=== PATIENT | female | born 1985 | race Caucasian/White ===

== ENCOUNTER 2018-09-20 23:05 | Emergency (ER) | payer SELFPAY ==
[2018-09-20 23:07] VITALS: BP 136/88; PULSE 79; RESP 16; TEMP 36.2; O2SAT 100; BMI 36.6
--- NOTE | 2018-09-20 23:28 | ED_ITS ---
HPI - General Adult General Chief complaint: Dental/Oral Stated complaint: thinks abscess lower right side of jaw Time Seen by Provider: 09/20/18 23:28 Source: patient Mode of arrival: ambulatory Limitations: no limitations History of Present Illness HPI narrative: 33-year-old female here for evaluation of what she thinks is a dental abscess in the right lower jaw. States the symptoms have been going on for the past couple days. No fevers. No problems breathing. States she has had a cracked tooth on that side for some time now. Started noticing some pain and swelling in that area recently. No ear pain. Related Data Previous Rx's Medication Instructions Recorded penicillin V potassium 500 mg PO QID 6 Days #24 tab 09/21/18 penicillin V potassium 500 mg PO QID 7 Days #28 tab 09/21/18 Review of Systems Constitutional Denies fever(s) and Denies headache(s) ENT Ears, Nose, Mouth, and Throat: Reports dental pain, Denies dizziness, Denies headache(s), Denies sore throat and Denies throat swelling Comments: Right-sided jaw pain Cardiovascular Denies chest pain and Denies dyspnea Respiratory Denies dyspnea Musculoskeletal Denies myalgias and Denies arthralgias Integumentary/Breasts Denies rash Neurologic Denies dizziness and Denies headache(s) Hematologic/Lymphatic Denies easy bleeding and Denies easy bruising Allergic/Immunologic Denies throat swelling [facility] Medical History Patient denies medical problems (Acute) Social History Smoking Status: Never smoker Social History Smoking Status: Never smoker Exam Initial Vital Signs Initial Vital Signs: Vital Signs Temperature 97.2 F L 09/20/18 23:07 Pulse Rate 79 09/20/18 23:07 Respiratory Rate 16 09/20/18 23:07 Blood Pressure 136/88 09/20/18 23:07 Pulse Oximetry 100 09/20/18 23:07 Const General: cooperative, comfortable, well developed, well groomed and No acute distress Orientation: alert, awake and oriented x3 HENMT Head: normal to inspection and normocephalic Ears: hearing grossly normal bilaterally Nose: external nose normal Face and sinus: normal facial exam Mouth: other (Draining abscess along tooth number 32) Teeth and gingiva: other (Cracked tooth number 32) Throat: posterior oropharynx normal and uvula midline Resp Effort & Inspection: normal respiratory effort Cardio Rate: regular rate Skin Lesions: no lesions Rashes: no rashes Neuro General: alert and awake Extrem General: normal to inspection and capillary refill normal Psych Appearance: grossly normal and well kempt Course Orders Ordered: Discontinued Medications Penicillin V Potassium (Veetids) 500 mg PO NOW ONE Stop: 09/21/18 00:14 Last Admin: 09/21/18 00:37 Dose: Not Given Penicillin V Potassium (Penicillin Vk 250mg Tab Prepack) 1 bottle MISC SEEINSTR ONE Stop: 09/21/18 00:37 Last Admin: 09/21/18 00:37 Dose: 1 bottle Vital Signs - 8 hr 09/20/18 23:07 09/21/18 00:42 Temperature 97.2 F L 98.5 F Pulse Rate 79 88 Respiratory Rate 16 16 Blood Pressure 136/88 133/92 H Pulse Oximetry 100 100 Medical Decision Making MDM Narrative Medical decision making narrative: Patient with a draining abscess in the right lower jaw line. She does have a cracked tooth her bottom left posterior molar. Patient was given prepack for antibiotics and a prescription. She was instructed she needed to contact dental for follow-up. She was given return precautions. She expressed understanding and agreement plan. Discharge Plan Departure Patient Disposition: Home Clinical Impression: Dental abscess Discharge Date/Time: 09/21/18 00:42 Interventions: ED Discharge Assessment Last Done: 09/21/18 00:42 Instructions: Tooth Abscess Activity Restrictions/Additional Instructions: Take the antibiotics as directed. Tomorrow you need to make contact with a dental provider to establish care and have definitive treatment. Return to the emergency department for any new or worsening symptoms Prescriptions: New penicillin V potassium 500 mg tablet 500 mg PO QID 7 Days Qty: 28 RF: 0 penicillin V potassium 500 mg tablet 500 mg PO QID 6 Days Qty: 24 RF: 0
[2018-09-21] MEDS: PENICILLIN 250 MG TAB PREPACK 1 BOTTLE MISC (00:37)
[2018-09-21 00:42] VITALS: BP 133/92; PULSE 88; RESP 16; TEMP 36.9; O2SAT 100
== END 2018-09-21 00:42 | disposition home or self-care (01) ==
PROVIDERS: Emergency Provider Emergency Medicine
DX: K04.7 Periapical abscess without sinus (principal)
CPT/HCPCS: 99282; 99283